=== PATIENT | female | born 1950 | race Caucasian/White ===

== ENCOUNTER → 2023-12-18 13:28 | Outpatient (REF) | payer MEDICARE, OTHER, SELFPAY ==
[2023-12-18 16:12] LABS: Blood Urea Nitrogen 11 mg/dl (7-17); Calcium 9.2 mg/dl (8.4-10.2); Carbon Dioxide 27 mmol/L (22-30); Chloride 108 mmol/L (98-107); Glucose 102 mg/dl (70-99); Sodium 138 mmol/L (135-145); eGFR > 60.00
[2023-12-18 16:20] LABS: Potassium 3.8 mmol/L (3.5-5.1)
== END ==
LOC: HWLAB 13:28
PROVIDERS: ATTENDING PHYSICIAN Nurse Practitioner Adult Health
DX: I10 Essential (primary) hypertension (principal)
CPT/HCPCS: 36415; 80048

== ENCOUNTER → 2024-01-21 10:14 | Outpatient (REF) | payer MEDICARE, OTHER, SELFPAY ==
[2024-01-21 12:49] LABS: Blood Urea Nitrogen 12 mg/dl (7-17); Calcium 8.6 mg/dl (8.4-10.2); Carbon Dioxide 25 mmol/L (22-30); Chloride 108 mmol/L (98-107); Glucose 81 mg/dl (70-99); Potassium 3.4 mmol/L (3.5-5.1); Sodium 140 mmol/L (135-145); eGFR > 60.00
== END ==
LOC: HWLAB 10:14
PROVIDERS: ATTENDING PHYSICIAN Nurse Practitioner Adult Health
DX: I10 Essential (primary) hypertension (principal)
CPT/HCPCS: 36415; 80048

== ENCOUNTER → 2024-03-08 10:23 | Outpatient (REF) | payer MEDICARE, OTHER, SELFPAY ==
[2024-03-08 12:07] LABS: Blood Urea Nitrogen 15 mg/dl (7-17); Calcium 9.4 mg/dl (8.4-10.2); Carbon Dioxide 30 mmol/L (22-30); Chloride 102 mmol/L (98-107); Glucose 99 mg/dl (70-99); Potassium 3.4 mmol/L (3.5-5.1); Sodium 136 mmol/L (135-145); eGFR > 60.00
== END ==
LOC: HWLAB 10:23
PROVIDERS: ATTENDING PHYSICIAN Physical Medicine & Rehabilitation; FAMILY PHYSICIAN Nurse Practitioner Adult Health
DX: I10 Essential (primary) hypertension (principal); Z01.818 Encounter for other preprocedural examination
CPT/HCPCS: 36415; 80048; 93005

== ENCOUNTER → 2024-05-06 06:33 | Outpatient (REF) | payer MEDICARE, OTHER, SELFPAY | LOC: MRI 06:33 | PROVIDERS: ATTENDING PHYSICIAN Physician Assistant Surgical; FAMILY PHYSICIAN Nurse Practitioner Adult Health | DX: M25.511 Pain in right shoulder (principal) | CPT/HCPCS: 73221 ==

== ENCOUNTER → 2024-05-10 12:05 | Outpatient (REF) | payer MEDICARE, OTHER, SELFPAY ==
[2024-05-10 15:30] LABS: ALT (SGPT) 16 U/L (0-35); AST (SGOT) 23 U/L (14-36); Albumin 4.4 g/dl (3.5-5.0); Alkaline Phosphatase 77 U/L (38-126); Blood Urea Nitrogen 16 mg/dl (7-17); Carbon Dioxide 26 mmol/L (22-30); Glucose 95 mg/dl (70-99); Total Bilirubin 0.6 mg/dl (0.2-1.3); Total Cholesterol 217 mg/dl (50-199); Total Protein 7.4 g/dl (6.3-8.2); Triglyceride 155 mg/dl (10-149); Very Low Density Lipoprotein 31 mg/dl (0-30); eGFR > 60.00
[2024-05-10 17:04] LABS: Chloride 106 mmol/L (98-107); HDL Cholesterol 126 mg/dl; LDL Cholesterol, Calculated 60 mg/dl; Potassium 4.3 mmol/L (3.5-5.1); Sodium 137 mmol/L (135-145)
[2024-05-11 11:09] LABS: Glycohemoglobin (HgbA1c) 5.7 % (4.0-5.6)
== END ==
LOC: HWLAB 12:05
PROVIDERS: ATTENDING PHYSICIAN Nurse Practitioner Adult Health
DX: R73.03 Prediabetes (principal); E78.2 Mixed hyperlipidemia; E78.5 Hyperlipidemia, unspecified
CPT/HCPCS: 36415; 80053; 80061; 83036

== ENCOUNTER 2024-06-20 12:15 | Inpatient (IN) | payer MEDICARE, OTHER, SELFPAY ==
[2024-06-19] VITALS (11 sets, daily range): BP systolic 119–146; BP diastolic 77–104; PULSE 85–105; BMI 27.5
[2024-06-19 16:38] LABS: % Basophils 0.6 % (0-2); % Eosinophils 0.6 % (0-6); % Immature Granulocytes 0.4 % (0-0.5); % Lymphocytes 20.9 % (20.5-51.1); % Monocytes 8.3 % (1.7-9.3); % Neutrophils 69.2 % (42.2-75.2); Absolute Basophils 0.1 10^3/uL (0-0.2); Absolute Eosinophils 0.1 10^3/uL (0-0.7); Absolute Lymphocytes 1.7 10^3/uL (1.2-3.4); Absolute Monocytes 0.7 10^3/uL (0.1-0.6); Absolute Neutrophils 5.6 10^3/uL (1.4-6.5); Hemoglobin 15.3 g/dL (12.0-16.0); Mean Corp Hgb Conc. 34.8 g/dL (33.0-37.0); Mean Corpuscular Hgb 31.9 pg (27.0-31.0); Mean Corpuscular Volume 91.9 fL (81.0-99.0); Mean Platelet Volume 10.3 fL (7.4-10.4); Nucleated Red Blood Cells % 0 %; Platelet Count 187 10^3/uL (130-400); Red Blood Cell Count 4.79 10^6/uL (4.20-5.40); Red Cell Dist. Width 15.6 % (11.5-14.5); White Blood Cell Count 8.2 10^3/uL (4.8-10.8)
[2024-06-19 16:47] LABS: INR 1.04; PT 13.4 Sec (11.4-14.6)
[2024-06-19 16:50] LABS: ALT (SGPT) 16 U/L (0-35); AST (SGOT) 19 U/L (14-36); Albumin 4.4 g/dl (3.5-5.0); Alkaline Phosphatase 80 U/L (38-126); Blood Urea Nitrogen 15 mg/dl (7-17); Carbon Dioxide 22 mmol/L (22-30); Chloride 107 mmol/L (98-107); Glucose 105 mg/dl (70-99); Lipase 140 U/L (23-300); Potassium 3.9 mmol/L (3.5-5.1); Sodium 138 mmol/L (135-145); Total Protein 7.1 g/dl (6.3-8.2); eGFR > 60.00
[2024-06-19 17:01] LABS: Troponin I < 0.012 ng/ml
--- NOTE | 2024-06-19 17:25 | ED.GENMED ---
History of Present Illness
General
Chief Complaint: Breathing Problem
Source: patient
Exam Limitations: none
Time Seen by Provider: 06/19/24 17:10
Nursing documentation reviewed up to this point in time: agreed with
History of Present Illness
History of Present Illness:
Patient presents to ED secondary to 2-week history of persistent nonbloody diarrhea along with intermittent vomiting episodes. Over the past 24 hours, patient has been experiencing increasing generalized weakness along with exertional shortness of
breath. Denies abdominal pain. Denies fever. Denies chest pain. Denies leg pain or swelling. Denies back pain. No recent travel. However, patient does report having had right finger surgery recently. Patient had been on Augmentin for 12
days, which has been completed. Diarrhea started towards the end of her Augmentin regimen. Patient does have history of C. difficile infection, most recently 10 years ago.
Past History
Past History
ED Past Medical History: GERD (w/ GI bleed), HTN, Hypercholesterolemia and Psychiatric (depression)
ED Past Surgical History: Orthopedic
Social History
Tobacco: Non-smoker
Review of Systems
Review of Systems
Allergies reviewed?: Yes
All Other Systems: ROS reviewed and negative except as documented in HPI and ROS
Constitutional: Reports no symptoms; Denies fever
EENT: Reports no symptoms
Respiratory: Reports trouble breathing; Denies cough
Cardiac: Reports no symptoms; Denies chest pain
ABD/GI: Reports nausea, vomiting and diarrhea; Denies abdominal pain
: Reports no symptoms
Musculoskeletal: Reports no symptoms
Skin: Reports no symptoms
Neurological: Reports weakness
Phy Exam
Physical Exam
Physical Exam:
Physical Exam
General: mild distress, not acutely ill. afebrile
Head: nc/at. eomi
Neck: supple. no meningeal signs.
Heart: s1/s2 regular rate and rhythm, no murmur. equal radial pulses.
Lungs: no acute respiratory distress. clear bilaterally
Abdomen: normal bowel sounds. not tender.
Neuro: alert and oriented. no focal neurological deficits
Skin: no rash
Psychiatric: well kept. interactive and cooperative
Extremities: no edema. no calf tenderness.
Scores
Heart Failure Risk
Heart Failure Risk Score: Not Applicable
Course
Orders/Labs/Results
Orders:
Orders
06/19/24 16:20
Electrocardiogram (*1) Urgent
Reason for Study: Shortness of Breath
EKG- Treatment ONCE
06/19/24 16:29
Complete Blood Count/With Diff Urgent
Comprehensive Metabolic Panel Urgent
Lipase Urgent
Magnesium Urgent
Comment: ADD ON
Prothrombin Time Urgent
Troponin I Urgent
06/19/24 17:23
Orthostatic VS- Treatment ONCE
0.9% Sodium Chloride 1000 ml [Nss] 1,000 ml IV BOLUS
06/19/24 17:24
Add On- LAB Urgent
Tests Added?: magnesium
06/19/24 18:56
Magnesium Sulfate 1 grams 0.9% Sodium Chloride 100 ml [Nss] 100 ml IV NOW
06/19/24 18:57
0.9% Sodium Chloride 500 ml [Nss] 500 ml IV BOLUS
06/19/24 19:02
Magnesium Sulfate 1 G/D5w [Magnesium Sulfate] 1 gm in 100 ml IV NOW
06/19/24 19:51
Urinalysis Reflex To Culture Urgent
Date Specimen was Collected: 06/19/24
Time Specimen was Collected: 19:46
Urine Microscopic Reflex Cult Urgent
STOOL [C difficile Antigen & Toxins] Urgent
NORM Source: Feces/Stool
Specimen Description:
Date Specimen was Collected: 06/19/24
Time Specimen was Collected: 19:45
Stool Culture Urgent
NORM Source: Feces/Stool
Specimen Description:
Date Specimen was Collected: 06/19/24
Time Specimen was Collected: 19:45
Urine Culture Urgent
NORM Source: U
Specimen Description:
Obtained by: Random
Date Specimen was Collected: 06/19/24
Time Specimen was Collected: 19:46
06/19/24 20:07
MetroNIDAZOLE [Flagyl] 500 mg PO NOW STA
06/19/24 21:43
Admit/Transfer Patient As Directed
Co-Sign Provider:
Level of Care: Observation services
Assign to:: Medical/Surgical
Physician / Group: Hospitalist
Diagnosis: diarrhea
Reason for Hospitalization: diarrhea
Expected length of stay greater than two midnights?: Yes
ELOS- Estimated Length of Stay in days: 2
I certify the patient meets the requirements for IP care: Yes
PRN Pain Medication Management As Directed
May give lesser potent ordered pain med per pt: Yes
preference::
Protocol:: Medication orders for pain may be administered in a
manner that supports deferring to patient preference
when the pt is:
- Requesting an ordered lesser potent pain medication.
Least to most potent pain medications are defined
as: acetaminophen < NSAID < tramadol < opioids
(morphine, oxycodone, hydromorphone).
- Requesting a lesser dose of the same medication IF
ORDERED.
- Requesting a less intrusive route of administration
if both routes are prescribed by the provider (PO <
IV).
06/19/24 21:44
Code Status As Directed
Resuscitation Status: Do not resuscitate
Reached after discussion with pt or family/Healthcare POA: Yes
Decision communicated with: patient
Physician note:: She has capacity to make this choice
DNR Bracelet Application ONCE
06/19/24 22:51
Bisacodyl [Dulcolax] 10 mg RECTAL [id number] PRN
Docusate W/Senna [Senokot-S] 1 tablet PO BIDPRN PRN
Loperamide [Imodium] 2 mg PO Q4HPRN PRN
Polyethylene Glycol Powder [Miralax] 17 grams PO DAILYPRN PRN
fluticasone propionate 2 spray NASAL DAILYPRN PRN
lysine HCl 500 mg PO DAILYPRN PRN
06/19/24 22:51
Activity As Directed
Activity Level: With Assistance
Pneumatic Compression Sleeves As Directed
Type: Knee high
Vital Signs As Directed
Frequency: Per unit guidelines
DX Deep Vein Thrombosis Video Routine
06/19/24 23:30
Hydrochlorothiazide [Oretic] 25 mg PO ONCE
Magnesium Oxide 500 mg PO BID
06/19/24 23:33
Valacyclovir HCl [Valtrex] 2,000 mg PO BIDPRN PRN
06/20/24 Breakfast
Clear Liquid
At Your Request: Full Participation
Does patient need a safe tray?: No
Basic Metabolic Panel IN AM
Complete Blood Count/No Diff IN AM
Magnesium IN AM
06/20/24 08:00
FLUTICASONE PROPIONATE 44 mcg [Flovent 44 Mcg Inhaler] 2 puff INH R BID
Pantoprazole [Protonix] 40 mg PO BID
06/20/24 18:00
Atorvastatin [Lipitor] 40 mg PO QPM
Sertraline HCl [Zoloft] 50 mg PO QPM
Abnormal Lab Results
06/19/24 06/19/24
16:29 19:51
MCH 31.9 H pg
(27.0-31.0)
RDW 15.6 H %
(11.5-14.5)
Absolute Monos (auto) 0.7 H 10^3/uL
(0.1-0.6)
Glucose 105 H mg/dl
(70-99)
Magnesium 1.2 L mg/dl
(1.6-2.3)
Urine Ketones Trace A
(Negative)
Urine Bilirubin 1+ A
(Negative)
Leukocyte Esterase Rfl 1+ A
(Negative)
Urine Bacteria (Reflex) Few A
(Negative)
06/19/24 16:29
06/19/24 16:29
Vital Signs
Initial and Last Documented VS:
Initial Vital Signs
Temp Pulse Resp BP Pulse Ox
97.5 F 116 24 146/104 97
06/19/24 16:13 06/19/24 16:13 06/19/24 16:13 06/19/24 16:13 06/19/24 16:13
Last Documented Vital Signs
Temp Pulse Resp BP Pulse Ox
97.6 F 93 17 154/92 97
06/20/24 00:04 06/20/24 00:04 06/20/24 00:04 06/20/24 00:04 06/20/24 00:04
MDM/Problems Addressed
MDM/Problems Addressed:
History and exam concerning for ongoing diarrhea, likely secondary to C. difficile infection. Patient with large amount of watery diarrhea in ED.
C. difficile and stool culture pending. Flagyl given. Patient will be admitted for continual IV hydration along with antibiotics.
*Critical Care Note
Total Time (30-74mins, 75-104mins- exclusive of procedures): Not Applicable
ED Attending Note
-
Portions of this chart may have been created with voice recognition software.� Occasional wrong word or��sound alike� substitutions may have occurred due to the inherent limitations of voice recognition software.
Discharge Plan
Departure
Patient Disposition: Admit
Date of Disposition: 06/19/24
Time of Disposition: 20:10
Admit to: Med/Surg
Presentation/result/management discussed w/ accepting MD/DO: Hospitalist
Discharge Problem:
Diarrhea, Dehydration, Hypomagnesemia
Interventions
Interventions:
*Risk Screen - Suicide Last Done: 06/19/24 16:13
*General Assessment Last Done: 06/19/24 16:13
*Neglect/Abuse Screening Last Done: 06/19/24 16:13
*ED COVID-19 Vaccine History Last Done: 06/19/24 16:57
*Nursing Disposition Last Done: 06/19/24 22:31
[facility] Assessment Last Done: 06/19/24 16:57
ED- Cardiac Assessment Last Done: 06/19/24 16:57
ED- Pulmonary Assessment Last Done: 06/19/24 16:57
Discharge Date and Time
Discharge Date/Time: 06/19/24 22:32
[2024-06-19] MEDS: NSS 1000 IV (17:30)
[2024-06-19 17:58] LABS: Magnesium 1.2 mg/dl (1.6-2.3)
[2024-06-19] MEDS: NSS 500 IV (19:12)
[2024-06-19] MEDS: MAGNESIUM SULFATE 100 IV (19:13)
[2024-06-19 20:02] LABS: Urine Albumin Trace (Neg - Trace); Urine Bilirubin 1+ (Negative); Urine Character Clear (Clear); Urine Glucose Negative (Negative); Urine Ketone Trace (Negative); Urine Leukocyte 1+ (Negative); Urine Nitrite Negative (Negative); Urine Occult Blood Negative (Negative); Urine Urobilinogen Negative (Neg - 1+)
[2024-06-19 20:03] LABS: Urine Color Yellow
[2024-06-19 20:14] LABS: Urine Bacteria Few (Negative); Urine Red Blood Cell 0-2 /HPF (0-2)
[2024-06-19] MEDS: FLAGYL 500 MG PO (20:52)
--- NOTE | 2024-06-19 21:00 | HPS.HSE ---
Family Physician
-
Family Physician: NOT KNOW UNKNOWN - PT DOES
Chief Complaint
-
Diarrhea
History of Present Illness
73 woman presents to ED because of a 2-week history of persistent, nonbloody diarrhea along with intermittent vomiting episodes. Over the past 24 hours, she has been experiencing increasing generalized weakness, exertional shortness of breath. She
Denies abdominal pain, fever, chest pain, leg pain or swelling, back pain, recent travel. However, she had right finger surgery recently and had been on Augmentin for 12 days, which has been completed. The Diarrhea started towards the end of her
Augmentin regimen. She has a history of C. difficile infection, most recently 10 years ago. At the time of my interview, she was comfortable. She had not had a BM in the ED yet.
Medical History
Past Medical History
Past Medical History: Reports Other
Additional Past Medical History:
GERD (w/ GI bleed),
essential HTN,
Hypercholesterolemia
depression
recent Orthopedic surgery
Lumbar spondylosis
Low back pain
Lumbar radiculopathy
DDD (degenerative disc disease), lumbar
Spinal stenosis of lumbar region
Avascular necrosis of bone of right hip
Compression fracture of body of thoracic vertebra
Other diseases of stomach and duodenum
Anxiety and depression
Melena
Congenital malformation of esophagus, unspecified
Diaphragmatic hernia without obstruction or gangrene
Gastrointestinal hemorrhage, unspecified
Arthritis of carpometacarpal (CMC) joint of both thumbs
Age-related osteoporosis without current pathological fracture
Iron deficiency anemia, unspecified iron deficiency anemia type
Impaired glucose metabolism
Essential (primary) hypertension
Gastro-esophageal reflux disease without esophagitis
Urinary incontinence, unspecified type
Chronic cough
S/P cubital tunnel release
Lumbar foraminal stenosis
Balance problem
Mild persistent asthma without complication
Closed compression fracture of third lumbar vertebra, initial encounter
Pre-diabetes
Non-traumatic compression fracture of third lumbar vertebra, sequela
Mixed hyperlipidemia
Recurrent major depressive disorder, in remission
Impaired fasting glucose
Obesity (BMI 30-39.9) - BMI now 27.5
Past Surgical History: Reports Other
Additional Past Surgical History:
see above
Social History
Tobacco: Non-smoker
Alcohol: Occasional
Drug: None
Family History
Family History: Not pertinent
Allergies / Home Medications
Allergies reflects when Allergies were last updated in [employer].
Home Medications with original date entered in [employer]
Allergy/Medication List:
Allergies
Allergy/AdvReac Type Severity Reaction Status Date / Time
NSAIDS (Non-Steroidal Allergy Unknown Verified 06/19/24 16:18
Anti-Inflamma
Home Medications
atorvastatin 40 mg tablet mg PO QPM Gastrointestinal issue 03/11/22
denosumab 60 mg/mL subcutaneous syringe (Prolia) 60 mg SQ [id number] OSTEO/HYPERCALC 03/11/22
fluticasone furoate 100 mcg/actuation blister powder for inhalation (Arnuity Ellipta) 1 puff IH R DAILY Lung/breathing issues 03/11/22
fluticasone propionate 50 mcg/actuation nasal spray,suspension 2 spray intranasal DAILYPRN PRN allergies 03/11/22
lysine HCl 500 mg capsule 500 mg PO DAILYPRN PRN PREVENT COLD SORE 03/11/22
omeprazole 40 mg capsule,delayed release 80 mg PO BID Gastrointestinal issue 03/11/22
sertraline 50 mg tablet 50 mg PO QPM Mental Health/Anxiety 03/11/22
valacyclovir 1 gram tablet 2,000 mg PO BIDPRN PRN cold sores 03/11/22
hydrochlorothiazide 100 mg tablet mg PO ONCE 06/19/24
Review of Systems
-
History Source: Patient
A 12 point ROS was completed and negative except as noted: Yes
Physical Exam
Vital Signs
Vital Signs
Temp Pulse Resp BP Pulse Ox
97.9 F 80 18 119/77 97
06/19/24 18:53 06/19/24 20:59 06/19/24 20:59 06/19/24 20:59 06/19/24 20:59
Physical Exam
General: Well Developed, Well Nourished, No Apparent Distress, Comfortable and Conversant
HEENT: NormoCephalic, Moist mucous membranes, [employer] Conjunctivae, No Ptosis, Nose Appears Normal and Ears Appear Normal
Respiratory: Clear
Cardiac: S1/S2 and Regular Rhythm
Musculoskeletal: No Clubbing, No Cyanosis and No Edema
Skin: Warm and Dry; No Rash
Neuro: Awake, Alert, Oriented and AO x 3
Psych: Calm
Laboratory Results
-
06/19/24 16:29
06/19/24 16:29
Laboratory Results
PT 13.4 Sec (11.4-14.6) 06/19/24 16:29
INR 1.04 06/19/24 16:29
Total Bilirubin 1.0 mg/dl (0.2-1.3) 06/19/24 16:29
AST 19 U/L (14-36) 06/19/24 16:29
ALT 16 U/L (0-35) 06/19/24 16:29
Alkaline Phosphatase 80 U/L (38-126) 06/19/24 16:29
Troponin I < 0.012 ng/ml 06/19/24 16:29
Lipase 140 U/L (23-300) 06/19/24 16:29
Data Reviewed
-
Lab Data: Labs Reviewed by me
Impression/Plan
-
IMPRESSION:
73 woman with diarrhea and weakness after taking abx
WBC not elevated
Mag low (1.2)
PLAN:
1. Diarrhea after antibiotics
Await result of c-diff toxin
Hold abx unless toxin positive
Send stool for culture and analysis
Hold antibiotics for tonight
Immodium as needed
2. Low mag - likely cause of weakness
Replete mag po
3. BRAT diet
Code DNR
VCD for DVTp
--- NOTE | 2024-06-19 22:54 | PTCARENOTE ---
Pt arrived onto floor @2254. Pt AAOx3 and able to ambulate into room without assistance. Pt with no complaints of pain or SOB at this time, only complaint being weakness. Pt oriented to room and call beasley; will continue to monitor.
[2024-06-19] MEDS: MAGNESIUM OXIDE 500 MG PO (23:38)
[2024-06-19] MEDS: ORETIC 25 MG PO (23:38)
[2024-06-19] MEDS: IMODIUM 2 MG PO (23:39)
[2024-06-20 00:04] VITALS: BP 154/92; BMI 27.6
[2024-06-20 07:31] VITALS: BP 123/80
[2024-06-20] MEDS: MAGNESIUM OXIDE 500 MG PO (07:37)
[2024-06-20] MEDS: PROTONIX 40 MG PO ×2 (07:37→19:25)
[2024-06-20] MEDS: FLOVENT 44 MCG INHALER 2 PUFF INH ×2 (07:49→20:06)
[2024-06-20 09:12] LABS: Hematocrit 36.5 % (37.0-47.0); Hemoglobin 12.6 g/dL (12.0-16.0); Mean Corp Hgb Conc. 34.5 g/dL (33.0-37.0); Mean Corpuscular Hgb 32.3 pg (27.0-31.0); Mean Corpuscular Volume 93.6 fL (81.0-99.0); Mean Platelet Volume 10.6 fL (7.4-10.4); Platelet Count 145 10^3/uL (130-400); Red Cell Dist. Width 15.7 % (11.5-14.5); White Blood Cell Count 6.1 10^3/uL (4.8-10.8)
[2024-06-20 09:35] LABS: Blood Urea Nitrogen 10 mg/dl (7-17); Calcium 8.8 mg/dl (8.4-10.2); Carbon Dioxide 22 mmol/L (22-30); Chloride 107 mmol/L (98-107); Estimated Creatinine Clearance 68 ml/min; Glucose 90 mg/dl (70-99); Magnesium 1.7 mg/dl (1.6-2.3); Sodium 137 mmol/L (135-145); eGFR > 60.00
[2024-06-20] MEDS: KCL 40 MEQ PO (10:10)
[2024-06-20 11:39] VITALS: BMI 27.6
--- NOTE | 2024-06-20 12:12 | W.PN.HOSP.TC ---
Today's Communication/Plan
-
Replete k
advance diet
hold abx
Assessment / Plan
Assessment / Plan
#Loose bowel movements likely secondary to adverse effects from recent antibiotics
C. difficile negative
Await further Salmonella Shigella study
Stop probiotics
Hold off on any further antibiotics
If with nausea vomiting abdominal pain then check CT abdomen pelvis
If it persistent loose bowel movements Imodium as needed
Advance diet to BRAT
#HARRELL resolved
#Hx of asthma
Cont with bronchodilators
#Hypokalemia
Replete and monitor
#Hypomagnesemia
Replete and monitor
#Tobacco abuse
Quit 10 years ago
#Mood disorder
Continue SSRIs
Hyperlipidemia
Continue statin
DVT ppx-lovenox
Anticipated Discharge: 24 - 48 hours
Subjective/Interval History
-
Date of Service: June 20, 2024
Denies any abdominal pain nausea vomiting
States had 3 loose bowel movement so far
Objective Data
-
Labs:
Laboratory Results
06/20/24
07:30
WBC 6.1
Hgb 12.6
Hct 36.5 L
Plt Count 145 D
Sodium 137
Potassium 3.0 L
Chloride 107
Carbon Dioxide 22
BUN 10
Creatinine 0.7
Glucose 90
Calcium 8.8
Vital Signs:
Vital Signs
Temp Pulse Resp BP Pulse Ox
97.9 F 80 18 123/80 95
06/20/24 07:31 06/20/24 07:54 06/20/24 07:31 06/20/24 07:31 06/20/24 07:31
I&O
06/19/24 06/20/24 06/21/24
06:59 06:59 06:59
Intake Total 120 / 120
Balance 120 / 120
Physical Exam
-
General: Well Developed and No Apparent Distress
HEENT: Normocephalic, Atraumatic and Moist Mucous Membranes
Respiratory: Clear to Auscultation
Cardiac: Regular Rhythm and S1/S2; Negative Murmur, Rub or Gallop
GI: Soft, Nontender, Nondistended and Normal Bowel Sounds; Negative Organomegaly
Rectal: Deferred by Provider
Musculoskeletal: No Clubbing, No Cyanosis and No Edema
Skin: Negative Rash
Neuro: Awake, AO x 3, No Motor Deficits and Nonfocal/Grossly Intact
Psych: Calm
Data Reviewed
-
Total Time Spent with Patient (in minutes): 56
[2024-06-20] MEDS: VISBIOME 2 CAP PO (12:35)
[2024-06-20] MEDS: KCL 20 MEQ PO (12:36)
--- NOTE | 2024-06-20 14:44 | CM ---
Patient seen bedside.
IA completed.
Dx diarrhea.
Patient lives alone, 2 story home.
Independent prior to admission.
Patient drives.
Patient followed by outpatient therapy, needs shoulder surgery.
Patient will need script to resume outpatient therapy.
PCP: Matty GAUTAM
Pharmacy: [facility]
Plan: Home with resumption of outpatient therapy
[2024-06-20 15:37] VITALS: BP 115/72
[2024-06-20] MEDS: LOVENOX 40 MG SC (17:38)
[2024-06-20] MEDS: LIPITOR 40 MG PO (17:38)
[2024-06-20] MEDS: ZOLOFT 50 MG PO (17:38)
[2024-06-20] MEDS: IMODIUM 2 MG PO (19:26)
[2024-06-20] MEDS: MELATONIN 3 MG PO (22:11)
[2024-06-20 23:10] VITALS: BP 127/80
[2024-06-21] MEDS: PROTONIX 40 MG PO ×2 (07:11→19:49)
[2024-06-21] MEDS: VISBIOME 2 CAP PO (07:11)
[2024-06-21] MEDS: IMODIUM 2 MG PO ×2 (07:15→19:49)
[2024-06-21 07:50] VITALS: BP 129/80
[2024-06-21] MEDS: FLOVENT 44 MCG INHALER 2 PUFF INH ×2 (08:08→19:52)
[2024-06-21 08:55] LABS: Blood Urea Nitrogen 5 mg/dl (7-17); Calcium 9.3 mg/dl (8.4-10.2); Carbon Dioxide 25 mmol/L (22-30); Chloride 108 mmol/L (98-107); Estimated Creatinine Clearance 68 ml/min; Glucose 108 mg/dl (70-99); Magnesium 1.8 mg/dl (1.6-2.3); Potassium 4.1 mmol/L (3.5-5.1); Sodium 137 mmol/L (135-145); eGFR > 60.00
--- NOTE | 2024-06-21 11:50 | W.PN.HOSP.TC ---
Today's Communication/Plan
-
await culture data
Assessment / Plan
Assessment / Plan
#Loose bowel movements likely secondary to adverse effects from recent antibiotics
C. difficile negative
Await further Salmonella Shigella study
Stop probiotics
Hold off on any further antibiotics
If with nausea vomiting abdominal pain then check CT abdomen pelvis
If it persistent loose bowel movements Imodium as needed
Advance diet to Low residue
#HARRELL resolved
#Hx of asthma
Cont with bronchodilators
#Hypokalemia
Replete and monitor
#Hypomagnesemia
Replete and monitor
#E.coli UTI
Await further susceptibility results for antibiotics.
#Tobacco abuse
Quit 10 years ago
#Mood disorder
Continue SSRIs
Hyperlipidemia
Continue statin
DVT ppx-lovenox
Anticipated Discharge: Within 24 hours
Subjective/Interval History
-
Date of Service: June 21, 2024
had some dysuria prior to arrival
took imodium earlier
no nausea or vomiting
Objective Data
-
Labs:
Laboratory Results
06/21/24
07:30
Sodium 137
Potassium 4.1 D
Chloride 108 H
Carbon Dioxide 25
BUN 5 L
Creatinine 0.7
Glucose 108 H
Calcium 9.3
Vital Signs:
Vital Signs
Temp Pulse Resp BP Pulse Ox
98.1 F 85 16 129/80 97
06/21/24 07:50 06/21/24 08:14 06/21/24 08:14 06/21/24 07:50 06/21/24 08:14
I&O
06/20/24 06/21/24 06/22/24
06:59 06:59 06:59
Intake Total 120 / 120 1200 / 1200
Balance 120 / 120 1200 / 1200
Physical Exam
-
General: Well Developed and No Apparent Distress
HEENT: Normocephalic, Atraumatic and Moist Mucous Membranes
Respiratory: Clear to Auscultation
Cardiac: Regular Rhythm and S1/S2; Negative Murmur, Rub or Gallop
GI: Soft, Nontender, Nondistended and Normal Bowel Sounds; Negative Organomegaly
Rectal: Deferred by Provider
Musculoskeletal: No Clubbing, No Cyanosis and No Edema
Skin: Negative Rash
Neuro: Awake, AO x 3, No Motor Deficits and Nonfocal/Grossly Intact
Psych: Calm
--- NOTE | 2024-06-21 14:46 | CM ---
Patient seen at bedside.
IMM explained and signed by patient.
PLAN: Discharge home. No anticipated needs.
[2024-06-21 15:41] VITALS: BP 145/95
[2024-06-21] MEDS: ZOLOFT 50 MG PO (17:31)
[2024-06-21] MEDS: LOVENOX 40 MG SC (17:31)
[2024-06-21] MEDS: LIPITOR 40 MG PO (17:31)
[2024-06-21] MEDS: MELATONIN 3 MG PO (22:22)
[2024-06-21 23:11] VITALS: BP 134/82
[2024-06-22] MEDS: PROTONIX 40 MG PO (08:05)
[2024-06-22] MEDS: VISBIOME 2 CAP PO (08:05)
[2024-06-22 08:07] VITALS: BP 112/68
[2024-06-22] MEDS: FLOVENT 44 MCG INHALER 2 PUFF INH (08:18)
[2024-06-22 10:30] LABS: Blood Urea Nitrogen 11 mg/dl (7-17); Carbon Dioxide 23 mmol/L (22-30); Chloride 107 mmol/L (98-107); Estimated Creatinine Clearance 68 ml/min; Glucose 95 mg/dl (70-99); Magnesium 1.7 mg/dl (1.6-2.3); Potassium 3.6 mmol/L (3.5-5.1); Sodium 137 mmol/L (135-145); eGFR > 60.00
--- NOTE | 2024-06-22 10:51 | CM ---
Patient seen at bedside.
States being discharged today.
IMM signed yesterday.
PLAN: Discharge to home.
Daughter to transport.
[2024-06-22] MEDS: MACROBID 100 MG PO (11:07)
--- NOTE | 2024-06-22 11:17 | W.PN.HOSP.TC ---
Today's Communication/Plan
-
po macrobid
dc home
Assessment / Plan
Assessment / Plan
#Loose bowel movements likely secondary to viral gastroenteritis
C. difficile negative
Await further Salmonella Shigella study found to be negative.
Stop probiotics
Hold off on any further antibiotics
If with nausea vomiting abdominal pain then check CT abdomen pelvis
If it persistent loose bowel movements Imodium as needed
Advance diet to Low residue and seems to be tolerating without any difficulty.
#HARRELL resolved
#Hx of asthma
Cont with bronchodilators
Remained stable on room air.
#Hypokalemia
Replete and monitor
#Hypomagnesemia
Replete and monitor
#E.coli UTI symptomatic
Started on macrobid-short course.
#Primary HTN
Continue Aldactone 100mg daily
#Tobacco abuse
Quit 10 years ago
#Mood disorder
Continue SSRIs
Hyperlipidemia
Continue statin
DVT ppx-lovenox
More than 30 minutes spent in discharge including
Final examination of the patient
Summarizing hospital stay
Instructions for continuing care to all relevant caregivers
Preparation of discharge records, prescriptions, and referral forms
Total time spent (in minutes): 53
Anticipated Discharge: Today
Subjective/Interval History
-
Date of Service: June 22, 2024
Feeling better
tolerating diet
no abd pain
afebrile
Objective Data
-
Labs:
Laboratory Results
06/22/24
07:10
Sodium 137
Potassium 3.6
Chloride 107
Carbon Dioxide 23
BUN 11
Creatinine 0.7
Glucose 95
Calcium 9.0
Vital Signs:
Vital Signs
Temp Pulse Resp BP Pulse Ox
97.9 F 75 16 112/68 98
06/22/24 08:07 06/22/24 08:21 06/22/24 08:21 06/22/24 08:07 06/22/24 08:21
I&O
06/21/24 06/22/24 06/23/24
06:59 06:59 06:59
Intake Total 1200 / 1200 1560 / 1560
Balance 1200 / 1200 1560 / 1560
--- NOTE | 2024-06-22 11:33 | W.DCSUMMARY ---
Discharge Summary
Discharge Data
Date of Admission: 06/20/24
Date of Discharge: 06/22/24
-
Pending Results: No
Hospital Course
73 female past medical history of hypertension, tobacco abuse, mood disorder, hyperlipidemia, asthma who is presenting with complaint of loose bowel movements. Patient had a recent antibiotic course for hand surgery. Patient was checked with Cdiff
and was found to be negative. Salmonella Shigella was found to be negative. Patient without any nausea and vomiting. Patient was started from clear liquid diet and advance to brat diet and was advanced to low residue. Patient was tolerating
diet. Diarrhea improved. Also was found to have electrolyte abnormality and potassium and magnesium was repleted. Also found to have a E. coli UTI and patient was symptomatic and was started on Macrobid. Patient was tolerating diet without any
overt diarrhea and this will be discharged home.
Discharge Plan
-
Patient Disposition: Home (Routine Discharge)
Discharge Diagnosis/Procedures: Diarrhea likely 2/2 viral gastroenteritis vs. low likelihood of recent antibiotics
Hypokalemia
Hypomagnesemia
Condition: Fair
Diet: As tolerated
Activity: No restrictions
Driving Restrictions: As prior to admission
Referrals:
UNKNOWN - PT DOES,NOT KNOW [Family Provider] - in less than 1 week
Prescriptions:
New
nitrofurantoin monohyd/m-cryst 100 mg Capsule
100 mg PO BID Qty: 9 0RF
Probiotic 10 billion cell capsule
10,000 mmu cells PO DAILY Qty: 20 0RF
Continued
valacyclovir 1,000 MG tablet
2,000 mg PO BIDPRN PRN (Reason: cold sores)
omeprazole 40 MG capsule,delayed release(DR/EC)
80 mg PO BID
fluticasone propionate 1 SPRAY spray,suspension
2 spray intranasal DAILYPRN PRN (Reason: allergies)
sertraline 50 MG tablet
50 mg PO QPM
Prolia 60 MG/ML syringe
60 mg SQ [id number]
Arnuity Ellipta 100 MCG blister with device
1 puff IH R DAILY
lysine HCl 500 MG capsule
500 mg PO DAILYPRN PRN (Reason: PREVENT COLD SORE)
atorvastatin 80 mg tablet
80 mg PO DAILY
spironolactone 100 mg Tablet
100 mg PO DAILY
Discharge Orders:
Discharge Patient (As Directed); Ordered 06/22/24
Ordered By: Alton Chase
Discharge Date and Time
Print Language: NEPALESE
[2024-06-22 13:14] VITALS: BP 108/87
== END 2024-06-22 13:19 | disposition home or self-care (01) | DRG 392 ==
LOC: 4 WEST ACU 12:15
PROVIDERS: Emergency Medicine; ADMITTING PHYSICIAN Internal Medicine; ATTENDING PHYSICIAN Hospitalist; EMERGENCY PHYSICIAN Emergency Medicine
DX: A08.4 Viral intestinal infection, unspecified (principal); N39.0 Urinary tract infection, site not specified; Q39.9 Congenital malformation of esophagus, unspecified; B96.20 Unspecified Escherichia coli [E. coli] as the cause of diseases classified elsewhere; E87.6 Hypokalemia; E83.42 Hypomagnesemia; J45.30 Mild persistent asthma, uncomplicated; I10 Essential (primary) hypertension; E78.2 Mixed hyperlipidemia; Z87.891 Personal history of nicotine dependence
CPT/HCPCS: 80048; 80053; 81003; 81015; 83690; 83735; 84484; 85025; 85027; 85610; 87045; 87046; 87077; 87086; 87186; 87324; 87427; 87449; 93005; 94640; 96361; 96365; 99285

== ENCOUNTER → 2024-06-27 12:33 | Outpatient (REF) | payer MEDICARE, OTHER, SELFPAY | LOC: RAD 12:33 | PROVIDERS: ATTENDING PHYSICIAN Nurse Practitioner Adult Health | DX: Z09 Encounter for follow-up examination after completed treatment for conditions other than malignant neoplasm (principal); M79.661 Pain in right lower leg; R60.0 Localized edema; Z98.890 Other specified postprocedural states; R06.09 Other forms of dyspnea | CPT/HCPCS: 71275; 93971; Q9967 ==

== ENCOUNTER 2024-06-27 16:37 | Inpatient (IN) | payer MEDICARE, OTHER, SELFPAY ==
[2024-06-27] VITALS (9 sets, daily range): BP systolic 105–134; BP diastolic 70–106; BMI 26.8; BMI 26.3
--- NOTE | 2024-06-27 14:22 | EDRN ---
Dr. Joy in to see pt at this time.
[2024-06-27 14:56] LABS: % Basophils 0.7 % (0-2); % Immature Granulocytes 0.5 % (0-0.5); % Monocytes 10.5 % (1.7-9.3); % Neutrophils 69.3 % (42.2-75.2); Absolute Basophils 0.1 10^3/uL (0-0.2); Absolute Eosinophils 0.1 10^3/uL (0-0.7); Absolute Lymphocytes 1.5 10^3/uL (1.2-3.4); Absolute Monocytes 0.9 10^3/uL (0.1-0.6); Absolute Neutrophils 5.7 10^3/uL (1.4-6.5); Hematocrit 39.8 % (37.0-47.0); Mean Corp Hgb Conc. 35.2 g/dL (33.0-37.0); Mean Corpuscular Hgb 33.1 pg (27.0-31.0); Mean Corpuscular Volume 94.1 fL (81.0-99.0); Mean Platelet Volume 10.2 fL (7.4-10.4); Nucleated Red Blood Cells % 0 %; Platelet Count 176 10^3/uL (130-400); Red Blood Cell Count 4.23 10^6/uL (4.20-5.40); Red Cell Dist. Width 14.7 % (11.5-14.5); White Blood Cell Count 8.2 10^3/uL (4.8-10.8)
--- NOTE | 2024-06-27 15:04 | EDRN ---
Pharmacy called about heparin.
[2024-06-27 15:08] LABS: ALT (SGPT) 15 U/L (0-35); AST (SGOT) 22 U/L (14-36); Albumin 3.9 g/dl (3.5-5.0); Alkaline Phosphatase 97 U/L (38-126); Blood Urea Nitrogen 12 mg/dl (7-17); Calcium 9.2 mg/dl (8.4-10.2); Carbon Dioxide 25 mmol/L (22-30); Chloride 101 mmol/L (98-107); Estimated Creatinine Clearance 58 ml/min; Glucose 104 mg/dl (70-99); Sodium 135 mmol/L (135-145); Total Protein 6.8 g/dl (6.3-8.2); eGFR > 60.00
--- NOTE | 2024-06-27 15:13 | ED.GENMED ---
History of Present Illness
General
Chief Complaint: Breathing Problem
Source: patient
Exam Limitations: none
Time Seen by Provider: 06/27/24 14:19
History of Present Illness
History of Present Illness:
74-year-old female who presents after outpatient CT showed bilateral pulmonary emboli. The patient states that she did recently have some shortness of breath about a week ago. She was admitted to hospital for several days. She admits that she was
in and out of bed and felt well so declined the heparin DVT prevention shots. Patient states she went see her doctor because her legs felt tight and she was sent for studies to rule out PE and DVT. Patient actually states she feels pretty well at
rest. She does note that her right leg seemed a little more swollen than the left.
Past History
Past History
ED Past Medical History: GERD (w/ GI bleed), HTN, Hypercholesterolemia and Psychiatric (depression)
ED Past Surgical History: Orthopedic
Social History
Tobacco: Non-smoker
Phy Exam
Physical Exam
Physical Exam:
CONSTITUTIONAL Patient alert and oriented to person, place and time. Well-appearing. Vital signs reviewed.
HEAD atraumatic, normocephalic.
EYES eyelids normal to inspection, Pupils equally round and reactive to light, Extraocular muscles intact, Conjunctiva normal, Sclera normal.
NECK normal range of motion, Trachea midline, no jugular venous distention.
RESPIRATORY CHEST No respiratory distress noted, Chest expansion equal, Bilateral breath sounds clear.
CARDIOVASCULAR regular rate and rhythm, Heart sounds normal.
ABDOMEN abdomen nontender, Bowel sounds normal. No distention.
BACK normal inspection, no obvious deformities
UPPER EXTREMITY range of motion normal, Motor strength normal, no cyanosis, no edema.
LOWER EXTREMITY range of motion normal, Motor strength normal, no cyanosis, right calf does feel little more tense and swollen than the left. No significant pedal edema
NEURO Speech normal, No focal motor deficits, Tino coma scale 15, Memory normal, Cranial Nerves intact to screening exam.
SKIN skin warm, dry, and normal in color.
PSYCHIATRIC patient oriented to person place and time, Normal affect.
Scores
Heart Failure Risk
Heart Failure Risk Score: Not Applicable
Course
Orders/Labs/Results
Orders:
Orders
06/27/24 14:29
Cardiac Monitoring- Treatment ONCE
06/27/24 14:30
Electrocardiogram (*1) Stat
Reason for Study: Other
Other Reason for Exam: chest pain
EKG- Treatment ONCE
06/27/24 14:42
Heparin 6,200 units IV NOW STA
Nursing to Place Non Medication Order As Directed
Physician Order: PTT 6 hours after initial start of Heparin infusion
Above order entered?: Yes
06/27/24 14:45
Heparin 81261 Units/250 ml 25,000 units in 250 ml IV PER PROTOCOL
Weight to be used for heparin protocol in kilograms (kg):: 77.6
Protocol:: DVT/PE
PTT Goal Range to be used:: PTT 73 to 111 seconds
Order type:: Initial
INITIAL Infusion Dose (UNITS/KG/hr) & then follow protocol:: 18 units/kg/hr
Infusion Dose in UNITS/hr & then follow protocol (UNITS/hr):: 1,400
INFUSION RATE in mL/hr & then follow protocol (mL/hr):: 14
For DVT/PE algorithm, re-bolus for low PTT?: Yes
PTT less than or equal to 64 seconds:: Re-bolus 80 units/kg (max 10,000units). Increase by 300 units/hr
(+ 3mL/hr)
PTT 64.1 to 72.9 seconds:: Re-bolus 40 units/kg (max 5,000 units). Increase by 200 units/hr
(+ 2mL/hr)
PTT 73 to 111 seconds:: Target Range. No change in rate.
PTT 111.1 to 130.9 seconds:: Decrease rate by 200 units/hr (- 2 mL/hr)
PTT 131 to 199.9 seconds:: HOLD for 1 hr. Then decrease by 200 units/hr (- 2mL/hr)
PTT greater than or equal to 200 seconds:: HOLD for 2 hrs & Notify Provider. Then decrease by 300 units/hr
(- 3mL/hr)
Lab follow-up:: Each change, PTT q6h until 2 consecutive are therapeutic. Then
PTT daily.
06/27/24 14:46
Complete Blood Count/With Diff Urgent
Comprehensive Metabolic Panel Urgent
Troponin I Urgent
06/27/24 15:07
Heparin 6,200 units IV PRN PRN
06/27/24 15:08
Heparin 3,100 units IV PRN PRN
06/27/24 15:24
PTT Urgent
Comment: Obtain baseline before beginning heparin infusion if not already collected
06/27/24 16:07
Admit/Transfer Patient As Directed
Co-Sign Provider:
Level of Care: Inpatient admission
Assign to:: Telemetry
Physician / Group: Parag Wesley
Diagnosis: Pulmonary Embolism
Reason for Telemetry: Arrhythmia
Date to Stop Telemetry: 06/30/24
Time to Stop Telemetry: 11:00
Reason for Hospitalization: heparin drip
Expected length of stay greater than two midnights?: Yes
ELOS- Estimated Length of Stay in days: 3
I certify the patient meets the requirements for IP care: Yes
06/27/24 16:08
PRN Pain Medication Management As Directed
May give lesser potent ordered pain med per pt: Yes
preference::
Protocol:: Medication orders for pain may be administered in a
manner that supports deferring to patient preference
when the pt is:
- Requesting an ordered lesser potent pain medication.
Least to most potent pain medications are defined
as: acetaminophen < NSAID < tramadol < opioids
(morphine, oxycodone, hydromorphone).
- Requesting a lesser dose of the same medication IF
ORDERED.
- Requesting a less intrusive route of administration
if both routes are prescribed by the provider (PO <
IV).
06/27/24 16:32
Code Status As Directed
Resuscitation Status: Do not resuscitate
Reached after discussion with pt or family/Healthcare POA: Yes
06/27/24 16:33
DNR Bracelet Application ONCE
06/27/24 17:49
Acetaminophen [Tylenol] 650 mg PO Q4HPRN PRN
06/27/24 17:49
Echo 2D MMode Color/Doppler Routine
Reason for Study: pulmonary embolism
PULMONARY CONSULT Routine
Consulting Provider: Chema Mercedes
Was physician already notified: Yes
Heparin Protocol- PTT Orders As Directed
PTT per Heparin protocol: -Obtain CBC and baseline PTT - if not already collected.
-Obtain PTT 6 hours from start of infusion. Then, every 6 hours until 2 consecutive
PTT's are therapeutic. Then, PTT Daily.
-With each rate change, obtain PTT every 6 hours until 2 consecutive PTT's are
therapeutic. Then, PTT Daily.
Activity As Directed
Activity Level: Out of Bed-Early Mobility
With Assistance
I&O [Intake/ Output] As Directed
Frequency: q12h
Notify MD As Directed
Notify physician if: PTT is greater than or equal to 200.
Vital Signs As Directed
Frequency: Per unit guidelines
06/27/24 20:00
FLUTICASONE PROPIONATE 44 mcg [Flovent 44 Mcg Inhaler] 2 puff INH R BID
Pantoprazole [Protonix] 40 mg PO BID
06/27/24 21:30
PTT Urgent
Comment: ptt/ heparin protocol
06/28/24 06:00
Antiphospholipid Antibody [Phospholipid Antibody Panel] IN AM
06/28/24 08:00
Atorvastatin [Lipitor] 80 mg PO DAILY
Lactobac/Bifidobac [Visbiome] 1 cap PO DAILY
Sertraline HCl [Zoloft] 50 mg PO DAILY
Spironolactone [Aldactone] 100 mg PO DAILY
06/29/24 06:00
Complete Blood Count/No Diff Q2D
Comment: notify provider: Platelet count < 130,000 or decrease by 50% from baseline
06/30/24 11:00
DC Protocol for Telemetry ONCE
07/01/24 06:00
Complete Blood Count/No Diff Q2D
Comment: notify provider: Platelet count < 130,000 or decrease by 50% from baseline
07/03/24 06:00
Complete Blood Count/No Diff Q2D
Comment: notify provider: Platelet count < 130,000 or decrease by 50% from baseline
07/05/24 06:00
Complete Blood Count/No Diff Q2D
Comment: notify provider: Platelet count < 130,000 or decrease by 50% from baseline
07/07/24 06:00
Complete Blood Count/No Diff Q2D
Comment: notify provider: Platelet count < 130,000 or decrease by 50% from baseline
07/09/24 06:00
Complete Blood Count/No Diff Q2D
Comment: notify provider: Platelet count < 130,000 or decrease by 50% from baseline
07/11/24 06:00
Complete Blood Count/No Diff Q2D
Comment: notify provider: Platelet count < 130,000 or decrease by 50% from baseline
07/13/24 06:00
Complete Blood Count/No Diff Q2D
Comment: notify provider: Platelet count < 130,000 or decrease by 50% from baseline
Abnormal Lab Results
06/27/24
14:46
MCH 33.1 H pg
(27.0-31.0)
RDW 14.7 H %
(11.5-14.5)
Absolute Monos (auto) 0.9 H 10^3/uL
(0.1-0.6)
Lymphocytes % 18.0 L %
(20.5-51.1)
Monocytes % 10.5 H %
(1.7-9.3)
Glucose 104 H mg/dl
(70-99)
06/27/24 14:46
06/27/24 14:46
Vital Signs
Initial and Last Documented VS:
Initial Vital Signs
Temp Pulse Resp BP Pulse Ox
98.1 F 88 20 123/71 97
06/27/24 14:07 06/27/24 14:07 06/27/24 14:07 06/27/24 14:07 06/27/24 14:07
Last Documented Vital Signs
Temp Pulse Resp BP Pulse Ox
98.2 F 96 18 134/89 94
06/27/24 18:03 06/27/24 19:35 06/27/24 19:35 06/27/24 18:03 06/27/24 19:35
MDM/Problems Addressed
MDM/Problems Addressed:
Extensive bilateral pulmonary emboli, DVT
*Radiology
Radiology exam reviewed: preliminary read by ED provider (CT reviewed showing bilateral pulmonary emboli.)
*Pulse Oximetry
Patient hypoxic: no
*EKG
Interpreted by ED Provider?: Yes
Interpretation: normal
Rate: normal
Rhythm: sinus
[place]: normal axis
QRS Pattern: normal QRS
Ischemia: no ischemia
*Computer Console Operator Interpretation
Rate: normal
Interpretation: normal
Rhythm: sinus
*Critical Care Note
Total Time (30-74mins, 75-104mins- exclusive of procedures): 30 minutes
Data Reviewed
Source: patient
Patient Management
Discussion with other providers: Hospitalist
Escalation/DeEscalation of care consider admission/obs:
Bilateral pulm emboli with DVT. Hemodynamically stable. IV heparin and admit. Unclear etiology except that he she was recently admitted and declined heparin injections.
ED Attending Note
-
Portions of this chart may have been created with voice recognition software.� Occasional wrong word or��sound alike� substitutions may have occurred due to the inherent limitations of voice recognition software.
Discharge Plan
Departure
Patient Disposition: Admit
Date of Disposition: 06/27/24
Time of Disposition: 15:13
Admit to: Telemetry
Presentation/result/management discussed w/ accepting MD/DO: Hospitalist
Discharge Problem:
Pulmonary embolism, bilateral
Interventions
Interventions:
*Risk Screen - Suicide Last Done: 06/27/24 14:40
*General Assessment Last Done: 06/27/24 14:40
*Neglect/Abuse Screening Last Done: 06/27/24 14:40
ED- Fall Risk Assessment Last Done: 06/27/24 14:41
*ED COVID-19 Vaccine History Last Done: 06/27/24 14:40
*Nursing Disposition Last Done: 06/27/24 17:43
ED- Cardiac Assessment Last Done: 06/27/24 14:50
ED- Pulmonary Assessment Last Done: 06/27/24 14:50
Discharge Date and Time
Discharge Date/Time: 06/27/24 17:44
[2024-06-27 15:19] LABS: Troponin I < 0.012 ng/ml
[2024-06-27] MEDS: HEPARIN 6200 UNITS IV (15:36)
[2024-06-27] MEDS: HEPARIN 25000 UNITS/250 ML IV (15:38)
--- NOTE | 2024-06-27 15:41 | EDRN ---
Lucy MCCOY w/ hospitalist group in room w/pt.
[2024-06-27 15:44] LABS: APTT 25.2 Sec (23.4-35.0)
--- NOTE | 2024-06-27 15:44 | HPS.HSE ---
Addendum entered and electronically signed by Parag Wesley MD 06/27/24 17:36:
I saw and examined the patient.
The HAND OUTSIDE CUTTER's note was reviewed and I agree with the note.
74-year-old female with past medical history of essential hypertension, hyperlipidemia, asthma, history of GI bleed, osteoporosis, recent right hand index finger injury came to ER for having persistent shortness of breath. Patient was here in
hospital last week and was treated for diarrhea, patient did have some exertional dyspnea at that time as well although was felt to be related to asthma related. Patient noticed new onset of right leg swelling from yesterday and went to PCP who
ordered urgent venous Doppler and CT chest and both were positive for DVT and bilateral PE. Patient was sent to ER for further care. Patient denies of having any palpitations/chest discomfort/dizziness associated with this.
HEENT: No pallor, cyanosis, or jaundice. Throat clear.
NECK: Supple. No JVD.
RESPIRATORY: Lungs clear to auscultation.
CVS: S1/S2, rrr, no murmur
ABDOMEN: Soft, non-tender. No distension. BS+/normal.
EXTREMITIES: No peripheral cyanosis or edema.
WATER SYSTEM OPERATOR: AOx3. No focal deficits.
Bilateral PE - submassive
Right leg DVT
-Patient not hypoxic. Not hypotensive. Trop neg.
-CT chest PE reviewed and have bilateral PE
-Right leg venous Doppler showing DVT involving femoral/peroneal/tibial/popliteal vein
-PESI score 76, Class II 30-day mortality rate of 1.7 to 3.5%
-No recent travel. No history of previous clot. No recent surgery. No family history of clotting disorder. Patient up-to-date with screening mammogram, due for screening colonoscopy last one was 5 years back.
-No signs of RV strain on CT imaging
-Transthoracic echocardiogram ordered
-Maintained on heparin drip, will transition to DOAC's
DVT PPX - heparin drip
Full code
-
Original Note:
Family Physician
-
Family Physician: Sridevi Starr
Chief Complaint
-
RLE Pain/Swelling and Dyspnea on Exertion
History of Present Illness
Pt is a 74 yo F with PMH HTN, HLD, asthma, GERD, GI bleeds, and osteoporosis c/o persistent SOB x 1 week. Pt states she was in the hospital 1 week ago c/o SOB and diarrhea. At that time, she was treated for hypokalemia, hypomagnesemia, and UTI and
discharged (06/22/24). She states today was her post-hospitalization f/u with PCP. She c/o RLE pain and SOB on exertion. Outpatient imaging including chest CT and peripheral vascular ultrasound reveal bilateral pulmonary emboli and acute DVT in the R
leg. She states she feels comfortable currently but does note R calf swelling compared to the left, as well some pain in the RLE particularly with ambulating. She admits to dry cough and chronic nausea. She denies fever, chest pain, palpitations, or
dizziness. She denies tobacco, HRT, and recent travel. She denies prior history of blood clots.
Medical History
Past Medical History
Past Medical History: Reports Other
Additional Past Medical History:
Essential Hypertension
Hyperlipidemia
Asthma
Depression
GERD / GI Bleed
Spinal Stenosis
Compression Fractures
Past Surgical History: Reports Other
Additional Past Surgical History:
Bilateral Carpal Tunnel
Abdominoplasty
Appendectomy
Right Hip Replacement
Social History
Tobacco: Non-smoker
Alcohol: Daily (3 alcoholic beverage nightly - No prior history of withdrawal)
Family History
Family History: Not pertinent
Allergies / Home Medications
Allergies reflects when Allergies were last updated in [employer].
Home Medications with original date entered in [employer]
Allergy/Medication List:
Allergies
Allergy/AdvReac Type Severity Reaction Status Date / Time
NSAIDS (Non-Steroidal Allergy GI bleed Verified 06/21/24 21:51
Anti-Inflamma
Home Medications
denosumab 60 mg/mL subcutaneous syringe (Prolia) 60 mg SQ [id number] OSTEO/HYPERCALC 03/11/22
fluticasone furoate 100 mcg/actuation blister powder for inhalation (Arnuity Ellipta) 1 puff inhalation R DAILY Lung/breathing issues 03/11/22
lysine HCl 500 mg capsule 500 mg PO DAILYPRN PRN PREVENT COLD SORE 03/11/22
omeprazole 40 mg capsule,delayed release 80 mg PO BID Gastrointestinal issue 03/11/22
sertraline 50 mg tablet 50 mg PO DAILY Mental Health/Anxiety 03/11/22
valacyclovir 1 gram tablet 2,000 mg PO BIDPRN PRN cold sores 03/11/22
atorvastatin 80 mg tablet 80 mg PO DAILY High Cholesterol 06/20/24
nitrofurantoin monohydrate/macrocrystals 100 mg capsule 100 mg PO BID #9 caps 06/22/24
spironolactone 100 mg tablet 100 mg PO DAILY 06/22/24
Lactobac no.2-Bifidobac no.1-S. thermo 112.5 billion cell capsule (Visbiome) 1 cap PO DAILY 06/27/24
acetaminophen 500 mg tablet (Tylenol Extra Strength) 500 mg PO Q6HPRN PRN mild pain 06/27/24
fluticasone propionate 50 mcg/actuation nasal spray,suspension 2 spray intranasal DAILYPRN PRN allergies 06/27/24
loperamide 2 mg capsule 2 mg PO DAILYPRN PRN diarrhea 06/27/24
Review of Systems
-
A 12 point ROS was completed and negative except as noted: Yes
Constitutional: Denies Fever or Chills
Respiratory: Reports Trouble Breathing
Cardiac: Denies Chest Pain or Palpitations
Abdomen/GI: Denies Abdominal Pain, Nausea or Vomiting
Physical Exam
Vital Signs
Vital Signs
Temp Pulse Resp BP Pulse Ox
98.1 F 71 21 129/73 96
0819/24 14:07 06/27/24 14:45 06/27/24 14:45 06/27/24 14:41 06/27/24 14:45
Physical Exam
General: Comfortable and Conversant
HEENT: Anicteric and Moist mucous membranes
Respiratory: Clear and Non Labored Respirations
Cardiac: S1/S2 and Regular Rhythm
GI: Soft and Non Tender
Rectal: Deferred by Provider
Musculoskeletal: No Clubbing, No Cyanosis and Edema, Right Lower Extremity
Skin: Warm, Dry and Other (RLE with increased warmth compared to LLE)
Neuro: Awake, Alert, Oriented and Nonfocal/grossly intact
Psych: Calm
Laboratory Results
-
06/27/24 14:46
06/27/24 14:46
Laboratory Results
Total Bilirubin 1.0 mg/dl (0.2-1.3) 06/27/24 14:46
AST 22 U/L (14-36) 06/27/24 14:46
ALT 15 U/L (0-35) 06/27/24 14:46
Alkaline Phosphatase 97 U/L (38-126) 06/27/24 14:46
Troponin I < 0.012 ng/ml 06/27/24 14:46
Data Reviewed
-
Lab Data: Labs Reviewed by me
Impression/Plan
-
Sub-Massive Pulmonary Embolism
-Consult Pulmonary
-Continue heparin drip
-Check Echo
Essential Hypertension
-Continue spironolactone
Hyperlipidemia
-Continue atorvastatin
Asthma, no acute exacerbation
-Continue Arnuity Ellipta
Depression
-Continue sertraline
GERD / Hx GI Bleed / Hiatal Hernia
-Continue Protonix
Code Status: DNR
--- NOTE | 2024-06-27 15:58 | EDRN ---
Dr. Keisha Wesley in room w/ pt at this time.
--- NOTE | 2024-06-27 17:02 | EDRN ---
No Delay Nurse Report tubed to 4th floor W for TEL bed 436.2 at this time w/ call placed to floor and message left for RN who will care for pt.
[2024-06-27] MEDS: FLOVENT 44 MCG INHALER 2 PUFF INH (19:32)
[2024-06-27] MEDS: PROTONIX 40 MG PO (20:14)
[2024-06-27 21:40] LABS: APTT 133.7 Sec (23.4-35.0)
[2024-06-27] MEDS: MELATONIN 5 MG PO (22:22)
[2024-06-28 03:25] VITALS: BP 124/74
[2024-06-28 05:56] LABS: APTT 93.1 Sec (23.4-35.0)
[2024-06-28] MEDS: ALDACTONE 100 MG PO (08:13)
[2024-06-28] MEDS: PROTONIX 40 MG PO (08:14)
[2024-06-28] MEDS: LIPITOR 80 MG PO (08:14)
[2024-06-28] MEDS: VISBIOME 1 CAP PO (08:14)
[2024-06-28] MEDS: ZOLOFT 50 MG PO (08:14)
[2024-06-28] MEDS: FLOVENT 44 MCG INHALER 2 PUFF INH (08:19)
--- NOTE | 2024-06-28 09:17 | CON.PUL ---
Consultation
Consultation Request
Date/Time Consultation Requested: 06/28/2024-7:30 AM
Date/Time Consultation Performed: 06/28/2024-8:30 AM
Requesting Provider: Hospitalist
Performing Provider: Dr. Mercedes
Reason for Consultation: Pulmonary embolism
Medical History
-
Chief Complaint: Shortness of breath
History of Present Illness:
74-year-old female with a history of hypertension, hyperlipidemia, asthma, osteoporosis presented with shortness of breath and noted to have multifocal pulm embolism submassive with right lower extremity DVT-pulmonary consulted for DVT/PE 06/28/2024.
She states that she has never had any respiratory issues. She denies any chest pain, chest tightness, wheezing, productive cough and has some dyspnea on exertion. She did complain of right calf pain and increased right lower extremity swelling.
She denied of any abdominal pain, nausea, vomiting, diarrhea or other constitutional symptoms.
Past Medical History
Past Medical History: None (Hypertension. Hyperlipidemia. Asthma. Depression. GERD. History of GI bleed. Spinal stenosis. Compression fractures. Carpal tunnel. Abdominal plasty. Appendectomy. Right hip replacement.)
Social History
Tobacco: Non-smoker
Alcohol: Daily (3 drinks nightly-no reported history of withdrawal)
Drug: None
Living: With Family
Occupational Exposures: No known asbestos exposure
Environmental Exposures: No known tuberculosis exposure
Family History
Family History: Reviewed & Not Pertinent
Allergies / Home Medications
Allergies
Allergy/AdvReac Type Severity Reaction Status Date / Time
NSAIDS (Non-Steroidal Allergy GI bleed Verified 06/21/24 21:51
Anti-Inflamma
Home Medications
�Medication �Instructions �Recorded �Confirmed �Last Taken �Type
denosumab 60 mg/mL subcutaneous 60 mg SQ [id number] OSTEO/HYPERCALC 03/11/22 06/27/24 Unknown History
syringe (Prolia)
fluticasone furoate 100 1 puff inhalation R DAILY 03/11/22 06/27/2424 History
mcg/actuation blister powder for Lung/breathing issues
inhalation (Arnuity Ellipta)
lysine HCl 500 mg capsule 500 mg PO DAILYPRN PRN PREVENT 03/11/22 06/27/24 Unknown History
COLD SORE
omeprazole 40 mg capsule,delayed 80 mg PO BID Gastrointestinal issue 03/11/22 06/27/24 06/26/24 History
release
sertraline 50 mg tablet 50 mg PO DAILY Mental 03/11/22 06/27/24 06/26/24 History
Health/Anxiety
valacyclovir 1 gram tablet 2,000 mg PO BIDPRN PRN cold sores 03/11/22 06/27/24 Unknown History
atorvastatin 80 mg tablet 80 mg PO DAILY High Cholesterol 06/20/24 06/27/24 06/26/24 History
nitrofurantoin 100 mg PO BID #9 caps 06/22/24 06/27/24 06/26/24 Rx
monohydrate/macrocrystals 100 mg
capsule
spironolactone 100 mg tablet 100 mg PO DAILY 06/22/24 06/27/24 06/26/24 History
Lactobac no.2-Bifidobac no.1-S. 1 cap PO DAILY 06/27/24 06/27/24 06/26/24 History
thermo 112.5 billion cell capsule
(Visbiome)
acetaminophen 500 mg tablet 500 mg PO Q6HPRN PRN mild pain 06/27/24 06/27/24 06/26/24 History
(Tylenol Extra Strength)
fluticasone propionate 50 2 spray intranasal DAILYPRN PRN 06/27/24 06/27/24 Unknown History
mcg/actuation nasal allergies
spray,suspension
loperamide 2 mg capsule 2 mg PO DAILYPRN PRN diarrhea 06/27/24 06/27/24 06/26/24 History
Review of Systems
-
Unable to Obtain full review of systems at this time due to: Other (Per HPI)
Vitals / Labs / Diagnostic Testing
Vital Signs
Temp Pulse Resp BP Pulse Ox
98.1 F 76 18 124/74 95
06/28/24 03:25 06/28/24 08:23 06/28/24 08:23 06/28/24 03:25 06/28/24 08:23
Lab Data
06/27/24 14:46
06/27/24 14:46
Laboratory Results
06/27/24 06/27/24 06/28/24
15:24 21:21 05:23
APTT 25.2 133.7 H 93.1 H
Diagnostic Testing:
Physical Exam
-
Exam:
Well-nourished and well-developed in no apparent distress
HEENT-atraumatic, normocephalic
Neck-supple, no JVD, no bruit
Heart-regular rate and rhythm-no murmurs, rubs or gallops, no RV heave or increased P2
Chest with diminished breath sounds, no wheezes, crackles,
Abdomen-soft, nontender, nondistended, no hepatosplenomegaly
Extremities-no cyanosis, clubbing, right lower extremity edema, Homans' sign
Integument-intact, no rashes, lesions or ecchymosis
Neurology-alert and oriented, nonfocal motor and sensory exam
Assessment
-
74-year-old female with a history of hypertension, hyperlipidemia, asthma, osteoporosis presented with shortness of breath and noted to have multifocal pulm embolism submassive with right lower extremity DVT-pulmonary consulted for DVT/PE 06/28/2024.
Submassive pulmonary embolism with evidence for right ventricular strain
PESIi score 76-low risk
Conditions present prior to admission:
Hypertension.
Hyperlipidemia.
Asthma.
Depression.
GERD.
History of GI bleed.
Spinal stenosis.
Compression fractures. Carpal tunnel. Abdominal plasty. Appendectomy. Right hip replacement.
Plan
Patient will be admitted to telemetry for close observation
Supplemental oxygen as needed
Aspiration precautions
Incentive spirometry
CT chest personally reviewed-see details below
Check echocardiogram
Lower extremity ultrasound with extensive right lower extremity DVT
With unprovoked clot would recommend hypercoagulable workup after 3-6 months of appropriate anticoagulation
Full PESI summarized above
Heparin drip or Lovenox 1 mg/kg every 12 hours
Benefits outweigh risks of thrombolytics therapy
Patient has no tachycardia and no hypotension-currently risks of aggressive thrombolytic therapy outweigh benefits
Bedrest �24 hours
DVT prophylaxis-on full anticoagulation
Early nutrition
Early mobilization
Outpatient pulmonary follow-up
Outpatient appropriate malignancy screening including colonoscopy and eventual hypercoagulable workup
Diagnostic data:
Chest x-ray 04/14/2019-NAD
CT chest 06/27/2024-extensive bilateral pulmonary emboli with minimal evidence for right ventricular strain, bilateral subsegmental atelectasis large hiatal hernia without evidence of volvulus incarceration
Lower extremity ultrasound 06/27/2024-extensive DVT right lower extremity
Data Reviewed
-
EKG: Report reviewed by me
Radiology: Image personally visualized and interpreted and Report reviewed by me
CT Scan: Image personally visualized and interpreted and Report reviewed by me
Ultrasound: Report reviewed by me
Medical Tests (Nuc Med, Echo etc): Report reviewed by me
Labs: Labs reviewed by me
Total Time Spent with Patient (in minutes): 55
[2024-06-28] MEDS: IMODIUM 2 MG PO (10:29)
--- NOTE | 2024-06-28 11:14 | CM ---
Patient seen at bedside. Patient confirmed that she was here last week and that nothing has changed. Patient lives alone, in a 2 story home. Patient stated that she was independent prior to admission. Patient with new prescription for eliquis per
patient medication insurance, this medication is tier 3 and approx cost is 203.53 for 90 days, patient updated and in agreement. CM provided coupon. Patient is driving and her PCP is Dr. Starr, [facility] is [place]. Patient was previously attending
outpatient pt, updated script for EMMA will be needed. CM will continue to follow for discharge planning needs.
Plan: Home with resumption of outpatient therapy
[2024-06-28 11:20] VITALS: BP 128/82
[2024-06-28] MEDS: ELIQUIS 10 MG PO (11:26)
[2024-06-28 12:39] VITALS: BMI 26.3
--- NOTE | 2024-06-28 13:53 | W.PN.HOSP.TC ---
Today's Communication/Plan
-
f/u TTE
discharge home if TTE normal
Assessment / Plan
Assessment / Plan
Bilateral PE - submassive
Right leg DVT
-Patient not hypoxic. Not hypotensive. Trop neg.
-CT chest PE reviewed and have bilateral PE
-Right leg venous Doppler showing DVT involving femoral/peroneal/tibial/popliteal vein
-PESI score 76, Class II 30-day mortality rate of 1.7 to 3.5%
-No recent travel. No history of previous clot. No recent surgery. No family history of clotting disorder. Patient up-to-date with screening mammogram, due for screening colonoscopy last one was 5 years back.
-No signs of RV strain on CT imaging
-Transthoracic echocardiogram result pending
-Transition heparin drip to Eliquis
Right index finger infection
-Patient underwent nail removal by Dr. Be
-Warm water soaking recommended
-Dressing to be applied afterward by RN
Chronic diarrhea
-Has been ongoing for some time, workup was negative last week
-Recommended patient to follow-up with GI in office as will likely will benefit with colonic biopsy and further testing
Hyperlipidemia
Asthma
Depression
GERD
Spinal stenosis
DVT PPX - heparin drip
Full code
Anticipated Discharge: Today
Subjective/Interval History
-
Date of Service: June 28, 2024
No issues overnight
Denies dizziness/shortness of breath/chest pain/palpitation
Objective Data
-
Labs:
Laboratory Results
06/28/24 06/28/24
05:23 11:25
APTT 93.1 H Cancelled
Vital Signs:
Vital Signs
Temp Pulse Resp BP Pulse Ox
97.4 F 75 20 128/82 96
06/28/24 11:20 06/28/24 11:20 06/28/24 11:20 06/28/24 11:20 06/28/24 11:20
I&O
06/27/24 06/28/24 06/29/24
06:59 06:59 06:59
Intake Total 480 / 480
Balance 480 / 480
Review of Systems
-
Respiratory: Reports No Symptoms
Cardiac: Reports No Symptoms
Abdomen/GI: Reports No Symptoms
Physical Exam
-
General: Well Developed and No Apparent Distress
HEENT: Normocephalic, Atraumatic and Moist Mucous Membranes
Respiratory: Clear to Auscultation
Cardiac: Regular Rhythm and S1/S2; Negative Murmur, Rub or Gallop
GI: Soft, Nontender, Nondistended and Normal Bowel Sounds; Negative Organomegaly
Rectal: Deferred by Provider
Musculoskeletal: No Clubbing, No Cyanosis and No Edema
Skin: Negative Rash
Neuro: Awake, AO x 3, No Motor Deficits and Nonfocal/Grossly Intact
Psych: Calm
[2024-06-28 15:15] VITALS: BP 144/65
== END 2024-06-28 16:06 | disposition home or self-care (01) | DRG 176 ==
LOC: 4 WEST ACU 16:37
PROVIDERS: Physician Assistant Medical; ADMITTING PHYSICIAN Hospitalist; CONSULT PHYSICIAN Internal Medicine Critical Care Medicine; EMERGENCY PHYSICIAN Emergency Medicine; FAMILY PHYSICIAN Nurse Practitioner Adult Health
DX: I26.99 Other pulmonary embolism without acute cor pulmonale (principal); I82.411 Acute embolism and thrombosis of right femoral vein; E78.00 Pure hypercholesterolemia, unspecified; F32.A Depression, unspecified; I10 Essential (primary) hypertension; K21.9 Gastro-esophageal reflux disease without esophagitis; J45.909 Unspecified asthma, uncomplicated; M81.0 Age-related osteoporosis without current pathological fracture; K44.9 Diaphragmatic hernia without obstruction or gangrene; Z66 Do not resuscitate; Z96.641 Presence of right artificial hip joint; Z87.19 Personal history of other diseases of the digestive system; Z88.6 Allergy status to analgesic agent
CPT/HCPCS: 71275; 80053; 84484; 85025; 85730; 86146; 86147; 86148; 93005; 93306; 93971; 94640; 96365; 96366; 99291; Q9967

== ENCOUNTER → 2024-07-12 15:35 | Outpatient (REF) | payer MEDICARE, OTHER, SELFPAY | LOC: RAD 15:35 | PROVIDERS: ATTENDING PHYSICIAN Nurse Practitioner Adult Health | DX: I26.99 Other pulmonary embolism without acute cor pulmonale (principal); R60.0 Localized edema; M79.662 Pain in left lower leg | CPT/HCPCS: 93971 ==

== ENCOUNTER → 2024-08-04 15:07 | Outpatient (REF) | payer MEDICARE, OTHER, SELFPAY | LOC: HWWDC 15:07 | PROVIDERS: ATTENDING PHYSICIAN Nurse Practitioner Adult Health | DX: Z12.31 Encounter for screening mammogram for malignant neoplasm of breast (principal) | CPT/HCPCS: 77063; 77067 ==

== ENCOUNTER → 2024-09-23 13:40 | Outpatient (REF) | payer MEDICARE, OTHER, SELFPAY ==
[2024-09-23 16:19] LABS: Blood Urea Nitrogen 15 mg/dl (7-17); Calcium 9.4 mg/dl (8.4-10.2); Carbon Dioxide 25 mmol/L (22-30); Chloride 104 mmol/L (98-107); Glucose 92 mg/dl (70-99); Potassium 3.7 mmol/L (3.5-5.1); Sodium 141 mmol/L (135-145); eGFR > 60.00
== END ==
LOC: HWLAB 13:40
PROVIDERS: ATTENDING PHYSICIAN Internal Medicine Cardiovascular Disease; FAMILY PHYSICIAN Nurse Practitioner Adult Health
DX: I10 Essential (primary) hypertension (principal)
CPT/HCPCS: 36415; 80048

== ENCOUNTER → 2024-09-27 10:17 | Outpatient (REF) | payer MEDICARE, OTHER, SELFPAY | LOC: RAD 10:17 | PROVIDERS: ATTENDING PHYSICIAN Nurse Practitioner Family; FAMILY PHYSICIAN Nurse Practitioner Adult Health | DX: Z86.711 Personal history of pulmonary embolism (principal); Z86.718 Personal history of other venous thrombosis and embolism; I82.401 Acute embolism and thrombosis of unspecified deep veins of right lower extremity; I26.99 Other pulmonary embolism without acute cor pulmonale | CPT/HCPCS: 71275; 93971; Q9967 ==

== ENCOUNTER → 2024-12-26 09:56 | Outpatient (REF) | payer MEDICARE, OTHER, SELFPAY ==
[2024-12-27 12:13] LABS: Protein S Total Antigen 123 % (63-126)
[2024-12-27 17:06] LABS: Anti-Thrombin III Activity 117 % (76-128)
[2024-12-27 17:26] LABS: Beta-2-Glycoprotein I Ab. IgG <10 SGU (<=20); Beta-2-Glycoprotein I Ab. IgM <10 SMU (<=20)
[2024-12-28 05:42] LABS: Cardiolipin IgA Antibody <10 APL (<=11); Cardiolipin IgM Antibody <10 MPL (<=12); Cardiolipin Igg Antibody <10 GPL (<=14)
== END ==
LOC: HWRAD 09:56
PROVIDERS: ATTENDING PHYSICIAN Internal Medicine; FAMILY PHYSICIAN Nurse Practitioner Adult Health; REFERRING PHYSICIAN Internal Medicine Hematology & Oncology
DX: Z86.718 Personal history of other venous thrombosis and embolism (principal); I82.491 Acute embolism and thrombosis of other specified deep vein of right lower extremity; I26.99 Other pulmonary embolism without acute cor pulmonale; I82.401 Acute embolism and thrombosis of unspecified deep veins of right lower extremity
CPT/HCPCS: 36415; 81240; 81241; 85300; 85305; 85610; 85613; 85730; 86146; 86147; 93971

== ENCOUNTER → 2025-06-16 07:01 | Outpatient (REF) | payer MEDICARE, OTHER, SELFPAY | LOC: RAD 07:01 | PROVIDERS: ATTENDING PHYSICIAN Nurse Practitioner Adult Health | DX: R09.89 Other specified symptoms and signs involving the circulatory and respiratory systems (principal) | CPT/HCPCS: 93922; 93925 ==

== ENCOUNTER → 2025-08-11 08:09 | Outpatient (REF) | payer MEDICARE, OTHER, SELFPAY | LOC: HWWDC 08:09 | PROVIDERS: ATTENDING PHYSICIAN Nurse Practitioner Adult Health | DX: Z12.31 Encounter for screening mammogram for malignant neoplasm of breast (principal); Z78.0 Asymptomatic menopausal state | CPT/HCPCS: 77063; 77067; 77080 ==

== ENCOUNTER → 2025-09-13 12:29 | Outpatient (REF) | payer MEDICARE, OTHER, SELFPAY | LOC: HWCARD 12:29 | PROVIDERS: ATTENDING PHYSICIAN Physical Medicine & Rehabilitation | DX: Z01.818 Encounter for other preprocedural examination (principal) | CPT/HCPCS: 93005 ==